=== PATIENT | female | born 1965 | race Caucasian/White ===

== ENCOUNTER 2020-03-15 11:35 | Outpatient (CLI) | payer OTHER ==
--- NOTE | 2020-03-15 12:00 | CT ---
Exam: CT cervical spine without contrast HISTORY: Trauma. Pain. COMPARISON: 11/03/2014 FINDINGS: No craniocervical dissociation. Appropriate alignment of the lateral masses of C1 and C2. Intact odon toid process. Appropriate alignment of the facets. Stable straightening of cervical lordosis. Stable posterior fusion hardware at C1 and C2. There is no evidence of perihardware lucency. Soft tissue neck structures: No mass, lymphadenopathy or hematoma. No prevertebral soft tissue swelli ng. Upper mediastinum and lung apices: Unremarkable Central spinal canal: Stable mild to moderate loss of disc space height at C5-C6 and C6-C7. Stable en dplate changes. There is no significant central canal stenosis throughout the cervical spine. There does appear to be severe right foraminal narrowing at C5-C6, moderate right neural foraminal narrowin g at C6-C7, moderate to severe left neural foraminal narrowing at C6-C7. Vertebral bodies: No acute cervical spine fracture. There is a remote avulsive fracture involving the medial left lateral mass of C2. There is stable asymmetric widening of the space between the odontoid process and the left lateral mass of C2. There is stable subluxation. Changes due to remote injury are essentially stable. No significant change in alignment. No acute fractures at the atlantoaxial articulation or throughout the remainder the cervical spine are appreciated. There is facet hypertrophy on the left side at C2-C3 and C3-C4. Additional hypertrophic changes invol ving the left facets at C7-T1. IMPRESSION: 1. Uncomplicated cervical fusion at the atlantoaxial articulation. Changes due to remote fracture of the left lateral mass at C2 is identified. There is no perihardware lucency. 2. Stable degenerative changes throughout the cervical spine. There is asymmetric left facet hypertro phy at C7-T1, C3-C4 and C2-C3. Transcribed Date/Time: 03/15/2020 12:13 PM
--- NOTE | 2020-03-15 12:02 | RAD ---
Gordon' view of the paranasal sinuses/orbits: 03/15/2020 HISTORY: MRI clearance, evaluate for orbital metallic foreign body FINDINGS: There is postoperative hardware of the upper cervical region. No metallic foreign body is n oted. IMPRESSION: No metallic foreign body overlies the orbits.
--- NOTE | 2020-03-15 12:50 | MRI ---
MR the lumbar spine without contrast: 03/15/2020 History: Burning and tingling in both feet, bilateral lower extremity radiculopathy, back pain COMPARISON: None available TECHNIQUE: Multiplanar multisequence MR images were obtained of lumbar spine without IV contrast FINDINGS: On the basis of 5 lumbar type vertebral bodies, conus medullaris terminates at theL1 level. Sagittal STIR imaging demonstrates no focal area of osseous marrow edema. T12-L1:Unremarkable L1-2:Unremarkable L2-3:Unremarkable L3-4:Unremarkable L4-5:There is disc space narrowing with disc desiccation. There is a central annular tear and there i s mild bilateral facet hypertrophy. No significant central canal or neural foraminal stenosis. L5-S1:Mild bilateral facet hypertrophy. No significant central canal or neural foraminal stenosis. Image retroperitoneal structures demonstrateno acute findings. IMPRESSION: Lower lumbar spine degenerative change, most prominent at the L4-5 level. No significant central yuridia l or neural foraminal stenosis
--- NOTE | 2020-03-15 14:24 | MRI ---
Brain MRI with and without contrast: 03/15/2020 COMPARISON: None HISTORY: Daily headaches, left-sided facial numbness, trigeminal neuralgia TECHNIQUE: Multiplanar multisequence MR imaging of the brain obtained with and without contrast FINDINGS: The diffusion weighted imaging demonstrates no evidence for acute infarction. There is no midline shift or mass effect and no ventricular enlargement seen. There are a few subcentimeter scattered foci of increased T2 and FLAIR signal within the subcortical white matter. There is mild mucosal thickening involving the alveolar recess of bilateral maxillary sinuses. Arterial flow voids at the axial level of the skull base appear grossly unremarkable on the T2-weight ed imaging. Posterior fusion hardware is noted within the upper cervical spine. Regional bone marrow signal intensity appears grossly unremarkable on the sagittal T1-weighted imagin g. No mass or abnormal signal intensity/abnormal enhancement is seen along the course of the trigeminal nerve on either side. Whole brain postcontrast imaging demonstrates no abnormal enhancement within the brain parenchyma. IMPRESSION: No acute findings.
[2020-03-15] MEDS ORDERED: Magnevist 469MG/ML 20 ML VIAL ONE (14:35)
--- NOTE | 2020-03-15 15:12 | MRI ---
MRI CERVICAL SPINE WITH AND WITHOUT CONTRAST: 03/15/20 INDICATIONS: Fracture of the cervical vertebrae. Neck pain. Correlation made to CT cervical spine performed earlier today which showed pedicle screws at C1 and C 2 with history of remote lateral mass of C2 fracture on the left. FINDINGS: Pedicle screws at C1-2 produce artifact on MRI and are better delineated on the CT study. The cervical vertebrae maintain normal height and alignment. There are degenerative changes at C4-5, C5-6 and C6-7 with loss of disc space, mild spurring, and mild posterior spondylosis. There is mild pannus at C1-2 which flattens the anterior thecal sac and effaces the anterior subarach noid space but does not impinge on the cervicomedullary junction. C2-3: No significant disc bulge or spondylosis. No central canal or foraminal stenosis. C3-4: Mild disc bulge and spondylosis flatten the thecal sac and mildly efface the anterior subarach noid space. No central canal or foraminal stenosis. C4-5: Minimal disc bulge and spondylosis mildly effaces the anterior subarachnoid space. C5-6: Minimal disc bulge and spondylosis mildly efface the anterior subarachnoid space centrally. The re is asymmetric spondylitic change seen on the right which flattens the anterior thecal sac on the r ight and encroaches into the right foramina. This is associated with right uncinate hypertrophy and p roduces right foraminal stenosis. This bony hypertrophic changes are better appreciated on today's CT which does confirm the right foraminal stenosis due to hypertrophic change. C6-7: No significant spondylosis seen centrally. Today's CT does show uncinate hypertrophy which pro duces left foraminal narrowing which is not as well appreciated on the MRI study. C7-T1: No significant abnormality identified. IMPRESSION: 1. Disc bulge and hypertrophic changes at C3-4, C4-5, and C5-6. The bony hypertrophic changes ar e better appreciated on CT scan. Right foraminal encroachment at C5-6 as described above. 2. The postoperative changes at C1 and C2 are better appreciated on today's CT with bilateral pe dicle screws showing adequate position. POS: [facility]
== END 2020-03-15 11:36 | disposition home or self-care (01) ==
LOC: BICCT 11:35
PROVIDERS: ATTEND Surgery
DX: S12.9XXA Fracture of neck, unspecified, initial encounter (principal); G50.0 Trigeminal neuralgia; M25.559 Pain in unspecified hip; M79.606 Pain in leg, unspecified; M47.812 Spondylosis without myelopathy or radiculopathy, cervical region; M47.813 Spondylosis without myelopathy or radiculopathy, cervicothoracic region; M50.21 Other cervical disc displacement, high cervical region; M47.816 Spondylosis without myelopathy or radiculopathy, lumbar region; Z98.1 Arthrodesis status; Z98.890 Other specified postprocedural states
CPT/HCPCS: 70210; 70553; 72125; 72148; 72156; A9579